=== PATIENT | female | born 1995 | race Caucasian/White ===

== ENCOUNTER 2018-04-24 06:09 | Day surgery (SDC) | payer OTHER ==
[2018-04-24] MEDS ORDERED: Ketamine HCl 50 MG/ML IJ ONE (06:10)
[2018-04-24] MEDS ORDERED: DIPRIVAN 200 MG/20 ML IV ONE (06:10)
[2018-04-24] MEDS: Lactated Ringers 1,000 ML IV SCH (06:27)
--- NOTE | 2018-04-24 09:24 | OP ---
SURGERY DATE/TIME: 04/24/2018805 PREOPERATIVE DIAGNOSIS: Persistent gastroesophageal reflux disease. POSTOPERATIVE DIAGNOSIS: Normal exam. PROCEDURE: EGD. SURGEON: Ruel Flemnig M.D. ANESTHESIA: MAC by Guillaume Winters CRNA. ESTIMATED BLOOD LOSS: None. SPECIMENS: None. DESCRIPTION OF PROCEDURE: After informed written consent was obtained, the patient was taken to the endoscopy suite. She underwent monitored anesthesia and a bite block was inserted. The endoscope was inserted into the posterior oropharynx and under direct visualization the esophagus was easily traversed. There were no obvious esophageal mucosal abnormalities. Upon entering the stomach the gastroesophageal junction likewise appeared normal. The stomach had a normal rugated gastric mucosa free of any lesions or defects. The pylorus was traversed and the first and second portions of the duodenum were inspected and showed no obvious mucosal abnormalities. Upon withdrawal again all mucosal structures appeared normal. Retroflexion was performed and showed no evidence of any significant hiatal hernia. The scope was removed and the patient was transferred to the recovery room in good condition.
[2018-04-24 09:49] VITALS: BP 101/62; PULSE 59; O2SAT 100
== END 2018-04-24 09:17 | disposition home or self-care (01) ==
LOC: SDC 06:09
PROVIDERS: ATTEND Family Medicine
DX: K21.9 Gastro-esophageal reflux disease without esophagitis (principal)
CPT/HCPCS: 94250; J2704

== ENCOUNTER 2023-03-08 06:20 | Day surgery (SDC) | payer OTHER ==
[2023-03-08] MEDS ORDERED: Lactated Ringers 1,000 ML IV SCH (06:30)
[2023-03-08 06:38] LABS: HCG URINE TEST NEGATIVE (NEGATIVE)
[2023-03-08 07:13] VITALS: RESP 18
[2023-03-08] MEDS ORDERED: Lactated Ringers 1,000 ML IV ONE (07:16)
[2023-03-08] MEDS ORDERED: Xylocaine-Mpf 2% 5 Ml Vial ONE (07:28)
[2023-03-08] MEDS ORDERED: DIPRIVAN 200 MG/20 ML IV ONE ×2 (07:28→08:34)
[2023-03-08] MEDS ORDERED: Versed 2 MG/2 ML Injection ONE (07:29)
[2023-03-08 09:04] VITALS: BP 121/84
[2023-03-08 09:15] VITALS: PULSE 84; TEMP 97.7; O2SAT 98
--- NOTE | 2023-03-08 09:29 | OP ---
SURGERY DATE/TIME: 03/08/2023 08 PREOPERATIVE DIAGNOSIS: Persistent gastroesophageal reflux disease. POSTOPERATIVE DIAGNOSIS: Moderate gastritis. PROCEDURE: EGD. SURGEON: Ruel Fleming M.D. ANESTHESIA: MAC by Niko Mercado CRNA. ESTIMATED BLOOD LOSS: Minimal. SPECIMENS: There were two cold forceps biopsies from the gastric antrum sent for Helicobacter pylori testing. DESCRIPTION OF PROCEDURE: After informed written consent was obtained, the patient was taken to the endoscopy suite. She underwent monitored anesthesia and a bite block was inserted. The endoscope was inserted into the oropharynx and under direct visualization the esophagus was easily traversed. Upon entering the stomach, there was some clear fluid which was suctioned. The gastric antrum was noted to have some moderate gastritis changes with no hemorrhage or focal ulceration upon passage through the pylorus. There were no obvious mucosal changes of the duodenum. Two cold forceps biopsies were taken from the gastric antrum and sent for Helicobacter pylori testing. Upon withdrawal the mucosal structures appeared within normal limits. The gastroesophageal junction did not appear abnormal. The esophageal mucosa likewise appeared normal. The scope was removed. The patient was transferred to the recovery room in good condition. I have advised that she increase her omeprazole from 20 mg to 40 mg daily and follow up in a week for pathology results.
== END 2023-03-08 09:30 | disposition home or self-care (01) ==
LOC: SDC 06:20
PROVIDERS: ATTEND Family Medicine
DX: K29.70 Gastritis, unspecified, without bleeding (principal); K21.9 Gastro-esophageal reflux disease without esophagitis; E11.9 Type 2 diabetes mellitus without complications
CPT/HCPCS: 81025; 82947; J2250; J2704

== ENCOUNTER 2023-05-06 09:19 | Emergency (ER) | payer OTHER ==
[2023-05-06 09:30] VITALS: RESP 20; TEMP 98.5
[2023-05-06 10:03] LABS: Group A Strep NOT DETECTED (NEGATIVE)
[2023-05-06 10:04] VITALS: O2SAT 96
[2023-05-06] MEDS ORDERED: Zofran 4 MG/2 ML VIAL IV ONE (10:08)
[2023-05-06] MEDS ORDERED: Sodium Chloride 0.9% 1000 ML 1,000 ML IV STA (10:08)
[2023-05-06] MEDS ORDERED: Zofran 4 MG/2 ML VIAL ONE (10:11)
[2023-05-06] MEDS ORDERED: Sodium Chloride 0.9% 1000 ML 1,000 ML ONE (10:11)
[2023-05-06 10:14] LABS: INFLUENZA A NEGATIVE (NEGATIVE); RESPIRATORY SYNCTIAL VIRUS NEGATIVE (NEGATIVE); SARS-CoV-2 Xpert Express NEGATIVE (NEGATIVE)
[2023-05-06 10:16] LABS: INFLUENZA B POSITIVE (NEGATIVE)
[2023-05-06 10:47] LABS: Absolute Neutrophil Ct (ANC) 3.57 x10^3/uL (1.4-6.9); BASOPHIL % 0.2 % (0.0-0.4); BILIRUBIN,TOTAL 0.2 mg/dL (0.2-1.3); Basophil (Absolute #) 0.01 x10^3/uL (0-0.4); Calcium 9.3 mg/dL (8.4-10.2); Creatinine 1 1.12 mg/dL (0.52-1.04); EST GLOMERULAR FILTRATION RATE 68.7 ML/MIN; Eosinophil (Absolute #) 0 x10^3/uL (0-0.5); Hematocrit 42.9 % (35-47); Hemoglobin 14.1 g/dL (12.0-16.0); IMMATURE GRAN # 0.02 x10^3u/L (0.00-0.03); IMMATURE GRAN % 0.4 % (0.00-0.4); Lymphocyte (Absolute #) 1.18 x10^3/uL (1.0-4.6); Lymphocytes % 21.5 % (24.0-44.0); Mean Cell Volume 86.5 fL (78-100); Mean Corpuscular Hemoglobin 28.4 pg (26-32); Mean Corpuscular Hgb Concent. 32.9 g/dL (32-36); Mean Platelet Volume 10.6 fL (7.5-11.0); Monocyte (Absolute #) 0.72 x10^3/uL (0.0-1.3); Monocytes % 13.1 % (0.0-12.0); Neutrophil % 64.8 % (36.0-66.0); Platelet Count 189 x10^3/uL (150-450); Potassium 3.7 mmol/L (3.5-5.1); Red Blood Count 4.96 x10^6/uL (4.1-5.4); Red Cell Distribution Width 12.6 % (11.5-14.0); Total Protein 7.3 g/dL (6.3-8.2); White Blood Count 5.5 x10^3/uL (4.0-10.5)
[2023-05-06 10:53] LABS: HCG SERUM TEST NEGATIVE (NEGATIVE)
[2023-05-06] MEDS ORDERED: GI COCKTAIL 45 ML (Maalox/Lidocaine) PO ONE (10:54)
[2023-05-06] MEDS ORDERED: XYLOCAINE VISCOUS 2% 15 ML CUP ONE (11:00)
[2023-05-06] MEDS ORDERED: MAALOX ES 30 ML UNIT DOSE ONE (11:01)
--- NOTE | 2023-05-06 11:01 | ERPHSYRPT ---
- History of Present Illness Time Seen by Provider: 05/06/23 10:07 Source: patient, family Exam Limitations: no limitations Patient Subjective Stated Complaint: Pt states "For the past three days I have had a sore throat and I have been vomiting since yesterday and I am congested and I just feel terrible." Triage Nursing Assessment: Pt presented alert and oriented X 3, skin pwd. Pt ambulates with an upright steady gait, able to speak in clear full sentenecs Pt has intermittant cough. Physician History: 28 years old female presented in the ER with 3 days history of flulike symptoms. Patient reports having cough congestion. Cough is dry with no difficulty breathing or chest pain. Patient also reports having nausea vomiting and couple of episodes of loose stools yesterday. Subjective feeling of fever and chills. Patient feels weak fatigued tired and dehydrated as she was not able to drink much yesterday. Patient thought it was a 24-hour viral infection but is not getting better diet make her concerned about it. Denies any abdominal pain. Allergies/Adverse Reactions: No Known Drug Allergies Allergy (Verified 03/08/23 06:35) Home Medications: Metformin HCl 500 mg [Glucophage 500 MG] 500 mg PO BID 04/19/18 [History] Omeprazole Magnesium [Prilosec Otc] 20 mg PO DAILY 04/19/18 [History] Sertraline HCl [Zoloft] 25 mg PO DAILY 04/19/18 [History] Ergocalciferol (Vitamin D2) [Vitamin D2] 1 cap PO WEEKLY 02/12/23 [History] Famotidine 2.5 ml PO HS 02/12/23 [History] Pravastatin Sodium 40 mg PO DAILY 02/12/23 [History] Atorvastatin Calcium 40 mg PO DAILY 03/08/23 [History] Exenatide Microspheres [Bydureon Bcise] 2 mg SQ WEEKLY 03/08/23 [History] Linagliptin [Tradjenta] 5 mg PO DAILY 03/08/23 [History] Hx Tetanus, Diphtheria Vaccination/Date Given: Yes Hx Influenza Vaccination/Date Given: No Hx Pneumococcal Vaccination/Date Given: No Immunizations Up to Date: No Travel Risk - International Travel Have you traveled outside of the country in past 3 weeks: No - Coronavirus Screening Are you exhibiting any of the following symptoms?: Yes Symptoms: Fever, Cough: New Onset, Vomiting/Diarrhea Close contact with a COVID-19 positive Pt in past 14-21 Days: No - Vaccine Status Have you recieved a Covid-19 vaccination: No - Review of Systems Constitutional: Fever, Chills, Fatigue, Weakness Eyes: No Symptoms Ears, Nose, & Throat: Nose Congestion, Throat Pain, Throat Swelling Respiratory: Cough, No Dyspnea Cardiac: No Symptoms Abdominal/Gastrointestinal: Nausea, Vomiting, Diarrhea Genitourinary Symptoms: No Symptoms Musculoskeletal: Myalgias Skin: No Symptoms Neurological: Headache Psychological: No Symptoms Endocrine: No Symptoms Hematologic/Lymphatic: No Symptoms Immunological/Allergic: No Symptoms - Past Medical History Pertinent Past Medical History: Yes Neurological History: No Pertinent History ENT History: No Pertinent History Cardiac History: No Pertinent History Respiratory History: No Pertinent History Endocrine Medical History: Diabetes Type II Musculoskeletal History: No Pertinent History GI Medical History: GERD History: No Pertinent History Psycho-Social History: Depression Female Reproductive Disorders: Abnormal Uterine Bleeding Other Medical History: MMR - Past Surgical History Past Surgical History: Yes Neuro Surgical History: No Pertinent History Cardiac: No Pertinent History Respiratory: No Pertinent History Gastrointestinal: No Pertinent History Genitourinary: No Pertinent History Musculoskeletal: No Pertinent History Female Surgical History: No Pertinent History Other Surgical History: tooth extraction under MAC, yrs ago had injury to back of head and received ben or sutures, - Social History Smoking Status: Never smoker Exposure to second hand smoke: Yes Drug Use: none Patient Lives Alone: No - Female History Hx Last Menstrual Period: 03/31/2023 Hx Now: No - Nursing Vital Signs Nursing Vital Signs: Initial Vital Signs Temperature 98.5 F 05/06/23 09:26 Pulse Rate 92 H 05/06/23 09:26 Respiratory Rate 20 05/06/23 09:26 Blood Pressure 154/91 05/06/23 09:26 O2 Sat by Pulse Oximetry 98 05/06/23 09:26 Pain Scale Pain Intensity 0 - Physical Exam General Appearance: no apparent distress, alert Eye Exam: PERRL/EOMI Ears, Nose, Throat Exam: moist mucous membranes, pharyngeal erythema Neck Exam: normal inspection, non-tender, supple, full range of motion Respiratory Exam: normal breath sounds, lungs clear Cardiovascular Exam: regular rate/rhythm, normal heart sounds Gastrointestinal/Abdomen Exam: soft, normal bowel sounds, No tenderness, No distention, No guarding Back Exam: normal inspection, normal range of motion Extremity Exam: normal inspection, normal range of motion Neurologic Exam: alert, oriented x 3, cooperative, courtroom deputy II-XII nml as tested, sensation nml, No motor deficits Skin Exam: normal color SpO2 Interpretation: normal SpO2: 96 O2 Delivery: Room Air Ordered Tests: Active Orders 24 hr Category Date Time Status IV Insertion STAT Care 05/06/23 10:08 Active CBC W DIFF Stat Lab 05/06/23 10:20 Completed CMP Stat Lab 05/06/23 10:20 Completed HCG QUALITATIVE, SERUM Stat Lab 05/06/23 10:20 Completed LIPASE Stat Lab 05/06/23 10:20 Completed Medication Summary Generic Name Dose Route Start Last Admin Trade Name Freq PRN Reason Stop Dose Admin Sodium Chloride 1,000 mls @ 999 mls/hr 05/06/23 10:08 05/06/23 10:15 Sodium Chloride 0.9% 1000 Ml IV 05/06/23 11:08 999 mls/hr .Q1H1M STA Administration Discontinued Medications Generic Name Dose Route Start Last Admin Trade Name Freq PRN Reason Stop Dose Admin Sodium Chloride Confirm 05/06/23 10:11 Sodium Chloride 0.9% 1000 Ml Administered 05/06/23 10:12 Dose 1,000 mls @ ud .ROUTE .STK-MED ONE Magnesium Hydroxide 45 ml 05/06/23 10:54 Mag Hydrx/Alum Hyd/Simeth/Lido 45 Ml Bottle PO 05/06/23 10:55 STAT ONE Ondansetron HCl 4 mg 05/06/23 10:08 05/06/23 10:15 Ondansetron Hcl 4 Mg/2 Ml Vial IV 05/06/23 10:09 4 mg STAT ONE Administration Ondansetron HCl Confirm 05/06/23 10:11 Ondansetron Hcl 4 Mg/2 Ml Vial Administered 05/06/23 10:12 Dose 4 mg .ROUTE .STK-MED ONE Lab/Rad Data: Laboratory Result Diagrams 05/06/23 10:20 05/06/23 10:20 Laboratory Results 05/06/23 05/06/23 05/06/23 Range/Units 10:20 10:20 10:20 WBC 5.5 (4.0-10.5) x10^3/uL RBC 4.96 (4.1-5.4) x10^6/uL Hgb 14.1 (12.0-16.0) g/dL Hct 42.9 (35-47) % MCV 86.5 (78-100) fL MCH 28.4 (26-32) pg MCHC 32.9 (32-36) g/dL RDW 12.6 (11.5-14.0) % Plt Count 189 (150-450) x10^3/uL MPV 10.6 (7.5-11.0) fL Gran % 64.8 (36.0-66.0) % Immature Gran % (Auto) 0.4 (0.00-0.4) % Nucleat RBC Rel Count 0.0 (0.00-0.1) % Eos # (Auto) 0 (0-0.5) x10^3/uL Immature Gran # (Auto) 0.02 (0.00-0.03) x10^3u/L Absolute Lymphs (auto) 1.18 (1.0-4.6) x10^3/uL Absolute Monos (auto) 0.72 (0.0-1.3) x10^3/uL Absolute Nucleated RBC 0.00 (0.00-0.01) x10^3u/L Lymphocytes % 21.5 L (24.0-44.0) % Monocytes % 13.1 H (0.0-12.0) % Eosinophils % 0.0 (0.00-5.0) % Basophils % 0.2 (0.0-0.4) % Absolute Granulocytes 3.57 (1.4-6.9) x10^3/uL Basophils # 0.01 (0-0.4) x10^3/uL Sodium 138 (137-145) mmol/L Potassium 3.7 (3.5-5.1) mmol/L Chloride 107 (98-107) mmol/L Carbon Dioxide 21 L (22-30) mmol/L Anion Gap 13.0 (5-15) MEQ/L BUN 7 (7-17) mg/dL Creatinine 1.12 H (0.52-1.04) mg/dL Estimated GFR 68.7 ML/MIN Glucose 114 H (74-106) mg/dL Calcium 9.3 (8.4-10.2) mg/dL Total Bilirubin 0.20 (0.2-1.3) mg/dL AST 24 (14-36) U/L ALT 16 (0-35) U/L Alkaline Phosphatase 64 (38-126) U/L Serum Total Protein 7.3 (6.3-8.2) g/dL Albumin 4.0 (3.5-5.0) g/dL Lipase 54 (23-300) U/L Serum HCG, Qual NEGATIVE (NEGATIVE) Influenza Type A Ag (NEGATIVE) Influenza Type B Ag (NEGATIVE) RSV (PCR) (NEGATIVE) SARS-CoV-2 (PCR) (NEGATIVE) Group A Strep Antibody (NEGATIVE) 05/06/23 Range/Units 09:30 WBC (4.0-10.5) x10^3/uL RBC (4.1-5.4) x10^6/uL Hgb (12.0-16.0) g/dL Hct (35-47) % MCV (78-100) fL MCH (26-32) pg MCHC (32-36) g/dL RDW (11.5-14.0) % Plt Count (150-450) x10^3/uL MPV (7.5-11.0) fL Gran % (36.0-66.0) % Immature Gran % (Auto) (0.00-0.4) % Nucleat RBC Rel Count (0.00-0.1) % Eos # (Auto) (0-0.5) x10^3/uL Immature Gran # (Auto) (0.00-0.03) x10^3u/L Absolute Lymphs (auto) (1.0-4.6) x10^3/uL Absolute Monos (auto) (0.0-1.3) x10^3/uL Absolute Nucleated RBC (0.00-0.01) x10^3u/L Lymphocytes % (24.0-44.0) % Monocytes % (0.0-12.0) % Eosinophils % (0.00-5.0) % Basophils % (0.0-0.4) % Absolute Granulocytes (1.4-6.9) x10^3/uL Basophils # (0-0.4) x10^3/uL Sodium (137-145) mmol/L Potassium (3.5-5.1) mmol/L Chloride (98-107) mmol/L Carbon Dioxide (22-30) mmol/L Anion Gap (5-15) MEQ/L BUN (7-17) mg/dL Creatinine (0.52-1.04) mg/dL Estimated GFR ML/MIN Glucose (74-106) mg/dL Calcium (8.4-10.2) mg/dL Total Bilirubin (0.2-1.3) mg/dL AST (14-36) U/L ALT (0-35) U/L Alkaline Phosphatase (38-126) U/L Serum Total Protein (6.3-8.2) g/dL Albumin (3.5-5.0) g/dL Lipase (23-300) U/L Serum HCG, Qual (NEGATIVE) Influenza Type A Ag NEGATIVE (NEGATIVE) Influenza Type B Ag POSITIVE (NEGATIVE) RSV (PCR) NEGATIVE (NEGATIVE) SARS-CoV-2 (PCR) NEGATIVE (NEGATIVE) Group A Strep Antibody NOT DETECTED (NEGATIVE) - Progress Progress: improved, re-examined Air Movement: good Progress Note: 05/06/23 10:59 28 years old with history of diabetes mellitus, hyperlipidemia, GERD, anxiety/depression is evaluated for flulike symptoms for 3 days with cough congestion, body aches, subjective feeling of fever chills, vomiting and diarrhea. Patient is feeling weak fatigued tired and dehydrated. She is given fluid bolus. She has a normal white count, chemistries show mild dehydration. Negative flu A but positive for flu B. Also has negative COVID and RSV/strep. Lungs bilateral clear to auscultation. Abdominal exam is soft nontender with good bowel sounds. I do not think she needs imaging. She feels better on reevaluation after fluids. I have discussed with patient in length about Tamiflu which is more effective if started within 2 days but she is still want it and is given a prescription. Also Zofran for nausea and recommended increase hydration. Discussed signs symptoms of worsening needing return to ER which she seems understanding. Blood Culture(s) Obtained: No Antibiotics given: No Counseled pt/family regarding: lab results, diagnosis, need for follow-up, rad results Medical Desision Making - Independent Historian Additional History obtained from: Spouse, Mother - Diagnostic Testing Diagnostic test were ordered, analyzed, and reviewed by me: Yes - Risk of complications The pt has a mod risk of morbidity or mortality based on: Need for prescription drug management - Departure Departure Disposition: Home Clinical Impression: Influenza B, Viral syndrome Condition: Stable Critical Care Time: No Referrals: JAVIER SULTANA DO [Primary Care Provider] - Follow up with PCP 2 days Instructions: Flu, Adult (DC), Viral Syndrome (DC) Additional Instructions: Take Zofran as needed Increase hydration. Follow-up with primary care for reevaluation in 2 days. Return to ER for worsening of symptoms like intractable nausea vomiting diarrhea, persistent high-grade fever, worsening cough or difficulty breathing etc. . Prescriptions: Oseltamivir 75 mg [Tamiflu 75MG Capsule] 75 mg PO BID #10 cap Ondansetron ODT 4 MG [Zofran Odt 4 mg] 1 ea PO QIDPRN PRN #7 tablet PRN Reason: n/v
[2023-05-06 11:38] VITALS: BP 121/65; PULSE 68
== END 2023-05-06 11:39 | disposition home or self-care (01) ==
LOC: ED 09:19
DX: J10.1 Influenza due to other identified influenza virus with other respiratory manifestations (principal); R05.1 Acute cough; R11.2 Nausea with vomiting, unspecified; R19.7 Diarrhea, unspecified; R53.1 Weakness; R53.83 Other fatigue; E11.9 Type 2 diabetes mellitus without complications; Z79.84 Long term (current) use of oral hypoglycemic drugs; Z79.899 Other long term (current) drug therapy; Z28.310 Unvaccinated for COVID-19
CPT/HCPCS: 0241U; 36000; 36415; 80053; 83690; 84703; 85025; 87651; 96374; 99284; J2405; A9270-GY

== ENCOUNTER 2024-05-04 07:35 | Emergency (ER) | payer OTHER ==
--- NOTE | 2024-05-04 07:48 | ERPHSYRPT ---
- History of Present Illness Time Seen by Provider: 05/04/24 07:48 Historian: patient Exam Limitations: no limitations Physician History: The patient presents with nausea, vomiting, and diarrhea. Nausea, vomiting, and diarrhea began around 2:00 AM today. The symptoms are acute and severe, affecting both the upper and lower gastrointestinal tract simultaneously. Vomiting and diarrhea are occurring simultaneously. They describe their stomach as feeling 'like it's in knots' with a crampy, knotted pain that is diffuse, affecting the entire abdomen. No medications such as Zofran or antidiarrheal pills have been taken for these symptoms. No intravenous fluids have been received yet. Timing/Duration: today Activities at Onset: sleep Quality: cramping Abdominal Pain Onset Location: generalized abdomen Pain Radiation: no radiation Severity of Pain-Max: severe Severity of Pain-Current: moderate Modifying Factors: Worsens With: palpation, vomiting Associated Symptoms: diarrhea, loss of appetite, nausea, vomiting, No back, No chest pain Previous symptoms: no prior history Allergies/Adverse Reactions: dulaglutide [From Trulicity] Adverse Reaction (Verified 05/04/24 07:46) semaglutide [From Ozempic] Adverse Reaction (Verified 05/04/24 07:46) Hx Tetanus, Diphtheria Vaccination/Date Given: Yes Hx Influenza Vaccination/Date Given: No Hx Pneumococcal Vaccination/Date Given: No - Review of Systems All Other Systems: Reviewed and Negative - Past Medical History Pertinent Past Medical History: Yes Neurological History: No Pertinent History ENT History: No Pertinent History Cardiac History: No Pertinent History Respiratory History: No Pertinent History Endocrine Medical History: Diabetes Type II Musculoskeletal History: No Pertinent History GI Medical History: GERD History: No Pertinent History Psycho-Social History: Depression Female Reproductive Disorders: Abnormal Uterine Bleeding Other Medical History: MMR - Past Surgical History Past Surgical History: Yes Neuro Surgical History: No Pertinent History Cardiac: No Pertinent History Respiratory: No Pertinent History Gastrointestinal: No Pertinent History Genitourinary: No Pertinent History Musculoskeletal: No Pertinent History Female Surgical History: No Pertinent History Other Surgical History: tooth extraction under MAC, yrs ago had injury to back of head and received ben or sutures, - Social History Smoking Status: Never smoker Exposure to second hand smoke: Yes Drug Use: none Patient Lives Alone: No - Nursing Vital Signs Nursing Vital Signs: Initial Vital Signs Temperature 98.4 F 05/04/24 07:36 Pulse Rate 100 H 05/04/24 07:36 Respiratory Rate 18 05/04/24 07:36 Blood Pressure 131/78 05/04/24 07:36 O2 Sat by Pulse Oximetry 97 05/04/24 07:36 Pain Scale Pain Intensity 4 - Physical Exam General Appearance: no apparent distress Eye Exam: eyes nml inspection Ears, Nose, Throat Exam: normal ENT inspection Neck Exam: normal inspection, supple, full range of motion Respiratory Exam: normal breath sounds, lungs clear, airway intact, No respirato ry distress Cardiovascular Exam: regular rate/rhythm, capillary refill <2 sec Gastrointestinal/Abdomen Exam: soft, tenderness (diffuse), rebound, No d istention, No mass, No guarding Neurologic Exam: alert, oriented x 3, cooperative Skin Exam: warm, dry, pale, No rash SpO2 Interpretation: normal O2 Delivery: Room Air - Course Nursing assessment & vital signs reviewed: Yes Ordered Tests: Active Orders 24 hr Category Date Time Status CBC W DIFF Stat Lab 05/04/24 08:11 Completed CMP Stat Lab 05/04/24 08:11 Completed LIPASE Stat Lab 05/04/24 08:11 Completed UA W/RFX UR CULTURE Stat Lab 05/04/24 07:54 Ordered Medication Summary Discontinued Medications Generic Name Dose Route Start Last Admin Trade Name Freq PRN Reason Stop Dose Admin Droperidol 1.25 mg 05/04/24 07:54 05/04/24 08:06 Droperidol 5 Mg/2 Ml Vial IV 05/04/24 07:55 1.25 mg STAT ONE Administration Droperidol Confirm 05/04/24 08:05 Droperidol 5 Mg/2 Ml Vial Administered 05/04/24 08:06 Dose 5 mg .ROUTE .STK-MED ONE Sodium Chloride 1,000 mls @ 999 mls/hr 05/04/24 07:54 05/04/24 08:06 Sodium Chloride 0.9% 1000 Ml IV 05/04/24 08:54 999 mls/hr .Q1H1M STA Administration Sodium Chloride Confirm 05/04/24 08:05 Sodium Chloride 0.9% 1000 Ml Administered 05/04/24 08:06 Dose 1,000 mls @ ud .ROUTE .STK-MED ONE Loperamide HCl 2 mg 05/04/24 07:54 05/04/24 08:25 Loperamide Hcl 2 Mg Capsule PO 05/04/24 07:55 2 mg STAT ONE Administration Lab/Rad Data: Laboratory Result Diagrams 05/04/24 08:11 05/04/24 08:11 Laboratory Results 05/04/24 05/04/24 05/04/24 Range/Units 08:22 08:11 08:11 WBC 15.1 H (3.98-10.04) x10^3/uL RBC 5.01 (3.93-5.22) x10^6/uL Hgb 14.3 (11.2-15.7) g/dL Hct 42.5 (34.1-44.9) % MCV 84.8 (79.4-94.8) fL MCH 28.5 (25.6-32.2) pg MCHC 33.6 (32.2-35.5) g/dL RDW 12.9 (11.7-14.4) % Plt Count 298 (182-369) x10^3/uL MPV 9.8 (9.4-12.3) fL Gran % 87.7 H (34.0-71.1) % Immature Gran % (Auto) 0.3 (0.001-0.429) % Nucleat RBC Rel Count 0.0 (0.00-0.2) % Eos # (Auto) 0.10 (0.04-0.36) x10^3/uL Immature Gran # (Auto) 0.05 H (0.001-0.031) x10^3u/L Absolute Lymphs (auto) 1.01 L (1.18-3.74) x10^3/uL Absolute Monos (auto) 0.64 (0.24-0.86) x10^3/uL Absolute Nucleated RBC 0.00 (0.00-0.012) x10^3u/L Lymphocytes % 6.7 L (19.3-51.7) % Monocytes % 4.3 L (4.7-12.5) % Eosinophils % 0.7 (0.7-5.8) % Basophils % 0.3 (0.1-1.2) % Absolute Granulocytes 13.20 H (1.56-6.13) x10^3/uL Basophils # 0.05 (0.01-0.08) x10^3/uL Sodium 141 (135-145) mmol/L Potassium 3.8 (3.5-5.1) mmol/L Chloride 110 H (98-107) mmol/L Carbon Dioxide 20 L (22-30) mmol/L Anion Gap 15.0 (5-15) MEQ/L BUN 12 (7-17) mg/dL Creatinine 0.72 (0.52-1.04) mg/dL Estimated GFR 116.0 ML/MIN Glucose 135 H (74-106) mg/dL Calcium 8.9 (8.4-10.2) mg/dL Total Bilirubin 0.60 (0.2-1.3) mg/dL AST 28 (14-36) U/L ALT 27 (0-35) U/L Alkaline Phosphatase 90 (38-126) U/L Serum Total Protein 7.7 (6.3-8.2) g/dL Albumin 4.3 (3.5-5.0) g/dL Lipase 51 (23-300) U/L Influenza Type A Ag NEGATIVE (NEGATIVE) Influenza Type B Ag NEGATIVE (NEGATIVE) RSV (PCR) NEGATIVE (NEGATIVE) SARS-CoV-2 (PCR) NEGATIVE (NEGATIVE) - Progress Progress Note: Gastroenteritis Presents with acute nausea, vomiting, and diarrhea, with crampy abdominal pain indicative of viral gastroenteritis. Symptoms are severe, impacting quality of life. Condition is typically self-limiting, lasting 18 to 24 hours. - Initiate IV fluids - Administer antiemetic for vomiting - Administer antidiarrheal - Labs ordered Labs show slight elevation in WBC and evidence of dehydration with HCO3 of 20, otherwise normal labs. COVID, Flu, RSV neg. Sxs improved with medications and IVF. No current abd pain, no need for advanced imaging. Will DC home with Zofran as needed, recommend as needed Loperamide for diarrhea. Counseled pt/family regarding: lab results, diagnosis, need for follow-up Medical Desision Making - Diagnostic Testing Diagnostic test were ordered, analyzed, and reviewed by me: Yes Radiological Interpretation: Interpreted by me - Risk of complications The pt has a mod risk of morbidity or mortality based on: Need for prescription drug management - Departure Departure Disposition: Home Clinical Impression: Gastroenteritis, Dehydration Condition: Good Critical Care Time: No Referrals: JAVIER SULTANA DO [Primary Care Provider] - Follow up/PCP as directed Instructions: Viral gastroenteritis in adults Prescriptions: ondansetron HCL [Ondansetron HCl] 8 mg PO TID PRN 7 Days #21 tablet PRN Reason: Nausea/Vomiting
[2024-05-04 07:57] VITALS: TEMP 98.4
[2024-05-04] MEDS ORDERED: Sodium Chloride 0.9% 1000 ML 1,000 ML ONE (08:05)
[2024-05-04] MEDS: Sodium Chloride 0.9% 1000 ML 1,000 ML IV STA (08:06)
[2024-05-04 08:12] LABS: BASOPHIL % 0.3 % (0.1-1.2); Basophil (Absolute #) 0.05 x10^3/uL (0.01-0.08); Eosinophil % 0.7 % (0.7-5.8); Hematocrit 42.5 % (34.1-44.9); Hemoglobin 14.3 g/dL (11.2-15.7); IMMATURE GRAN # 0.05 x10^3u/L (0.001-0.031); IMMATURE GRAN % 0.3 % (0.001-0.429); Lymphocyte (Absolute #) 1.01 x10^3/uL (1.18-3.74); Lymphocytes % 6.7 % (19.3-51.7); Mean Cell Volume 84.8 fL (79.4-94.8); Mean Corpuscular Hemoglobin 28.5 pg (25.6-32.2); Mean Corpuscular Hgb Concent. 33.6 g/dL (32.2-35.5); Mean Platelet Volume 9.8 fL (9.4-12.3); Monocyte (Absolute #) 0.64 x10^3/uL (0.24-0.86); Monocytes % 4.3 % (4.7-12.5); Neutrophil % 87.7 % (34.0-71.1); Platelet Count 298 x10^3/uL (182-369); Red Blood Count 5.01 x10^6/uL (3.93-5.22); Red Cell Distribution Width 12.9 % (11.7-14.4); White Blood Count 15.1 x10^3/uL (3.98-10.04)
[2024-05-04] MEDS: IMODIUM 2 MG PO ONE (08:25)
[2024-05-04 08:28] LABS: ALBUMIN 4.3 g/dL (3.5-5.0); BILIRUBIN,TOTAL 0.6 mg/dL (0.2-1.3); Calcium 8.9 mg/dL (8.4-10.2); Creatinine 1 0.72 mg/dL (0.52-1.04); Potassium 3.8 mmol/L (3.5-5.1); Total Protein 7.7 g/dL (6.3-8.2)
[2024-05-04 09:08] LABS: INFLUENZA A NEGATIVE (NEGATIVE); INFLUENZA B NEGATIVE (NEGATIVE); RESPIRATORY SYNCTIAL VIRUS NEGATIVE (NEGATIVE); SARS-CoV-2 Xpert Express NEGATIVE (NEGATIVE)
[2024-05-04 09:28] VITALS: BP 125/79; PULSE 97; RESP 18; O2SAT 96
== END 2024-05-04 09:35 | disposition home or self-care (01) ==
LOC: ED 07:35
DX: K52.9 Noninfective gastroenteritis and colitis, unspecified (principal); E86.0 Dehydration; R11.2 Nausea with vomiting, unspecified; R10.84 Generalized abdominal pain
CPT/HCPCS: 0241U; 36415; 80053; 83690; 85025; 96374; 99283; 99284; A9270-GY